=== PATIENT | female | born 1955 | race Caucasian/White ===

== ENCOUNTER → 2017-09-22 | Outpatient (CLI) | payer OTHER | END | disposition home or self-care (01) | LOC: CFH 13:16 | PROVIDERS: ATTEND Family Medicine | DX: Z12.31 Encounter for screening mammogram for malignant neoplasm of breast (principal); N60.01 Solitary cyst of right breast; N63.10 Unspecified lump in the right breast, unspecified quadrant; N64.4 Mastodynia | CPT/HCPCS: 77065 ==